=== PATIENT | female | born 1955 | race Caucasian/White ===

== ENCOUNTER 2016-10-27 17:52 | Emergency (ER) | payer MEDICARE, OTHER ==
[2016-10-27] MEDS ORDERED: Acetaminophen 500 MG TAB ONE (18:02)
[2016-10-27 19:13] LABS: #Basophils 0.2 thou/uL (0.0-0.2); #Eosinphils 0.3 thou/uL (0.0-0.7); #Lymphocytes 3.2 thou/uL (1.20-3.40); #Monocytes 1.2 thou/uL (0.11-0.59); #Neutrophils 7.6 thou/uL (1.40-6.50); %Basophils 1.2 % (0.0-1.0); %Eosinophils 2.1 % (0.0-10.0); %Monocytes 9.6 % (0.0-10.0); Hematocrit 47.8 % (36.0-47.0); Mean Platelet Volume 7.8 fL (7.4-10.4); Red Blood Cell (RBC) Count 5.35 mill/uL (4.20-5.40); White Blood Cell (WBC) Count 12.4 thou/uL (4.8-10.8)
--- NOTE | 2016-10-27 19:19 | RAD ---
CHEST TWO VIEWS 10/27/16 There are no prior films available for comparison. The heart is normal in size for age. There are no effusions or congestive changes. While there were no lobar consolidations, there is relative increase in density over the right lower chest that seems to more than just the overlying soft tissues. I cannot exclude an early infiltrate here, though it is difficult to substantiate on the lateral view. The upper lobes are clear. The bony structures godfrey wed no acute change. There may have been old trauma to the distal left clavicle. The trachea is midl ine. IMPRESSION: Equivocal mild increase in markings in the right lower chest. Pneumonia not ruled out. POS: HOME
[2016-10-27 19:24] LABS: ALT (SGPT) 26 U/L (0-55); AST (SGOT) 18 U/L (5-34); Alkaline Phosphatase 92 U/L (40-150); Anion Gap 16 mmol/L (10-20); BUN (Urea Nitrogen) 14 mg/dL (9.8-20.1); Bilirubin, Total 0.3 mg/dL (0.2-1.2); Calc. Creatinine Clearance 0 mL/min (70-130); Calcium 9.8 mg/dL (7.8-10.44); Carbon Dioxide 25 mmol/L (23-31); Chloride 105 mmol/L (98-107); Estimated GFR-MDRD 75; Globulin 3.3 g/dL (2.4-3.5); Protein, Total 7.9 g/dL (5.8-8.1)
[2016-10-27] MEDS ORDERED: methylPREDNISolone Sod Succ/PF 125 MG/2 ML VIAL ONE (19:48)
[2016-10-27 20:34] LABS: Bilirubin Negative (Negative); Blood, Urine Trace (Negative); Glucose, Urine (Dipstick) Negative (Negative); Ketone, Urine Negative (Negative); Nitrite Negative (Negative); Protein, Urine (Dipstick) 30 mg/dL (Neg-Trace); Urobilinogen 0.2 mg/dL (0.2-1.0)
[2016-10-27 20:41] LABS: Bacteria/HPF 1+ HPF (None Seen); RBC/HPF 0-3 HPF (0-3); Squamous Epithelial 0-3 HPF (0-3); WBC/HPF 0-3 HPF (0-3)
[2016-10-27 20:49] LABS: Methadone Not Detected (NotDetected); Methamphetamine Not Detected (NotDetected)
== END 2016-10-27 21:55 | disposition home or self-care (01) ==
LOC: BURERS 17:52
DX: J18.9 Pneumonia, unspecified organism (principal); J45.21 Mild intermittent asthma with (acute) exacerbation; J06.9 Acute upper respiratory infection, unspecified; E11.9 Type 2 diabetes mellitus without complications; F41.9 Anxiety disorder, unspecified; F32.9 Major depressive disorder, single episode, unspecified; Z79.899 Other long term (current) drug therapy; Z79.84 Long term (current) use of oral hypoglycemic drugs
CPT/HCPCS: 36415; 71020; 80053; 80306; 81003; 81015; 85025; 85379; 87040; 94644; 94799; 96365; 96366; 96375; J1956; J2930

== ENCOUNTER 2016-11-29 09:57 | Outpatient (CLI) | payer MEDICARE, OTHER ==
[2016-11-29 11:07] LABS: #Basophils 0.2 thou/uL (0.0-0.2); #Eosinphils 0.4 thou/uL (0.0-0.7); #Lymphocytes 3.1 thou/uL (1.20-3.40); #Monocytes 0.9 thou/uL (0.11-0.59); #Neutrophils 7.5 thou/uL (1.40-6.50); %Basophils 1.3 % (0.0-1.0); %Eosinophils 3.2 % (0.0-10.0); %Monocytes 7.4 % (0.0-10.0); %Neutrophils 62.2 % (42.0-75.0); Hemoglobin 14.1 g/dL (12.0-16.0); Mean Corpuscular HGB CONC 32.1 g/dL (32.0-36.0); Mean Corpuscular Hemoglobin 28.5 pg (27.0-31.0); Mean Corpuscular Volume 88.8 fl (81.0-99.0); Mean Platelet Volume 6.8 fL (7.4-10.4); Platelet Count 275 thou/uL (130-400); RBC Distribution Width 11.8 % (11.5-14.5); Red Blood Cell (RBC) Count 4.96 mill/uL (4.20-5.40); White Blood Cell (WBC) Count 12.1 thou/uL (4.8-10.8)
== END 2016-11-29 09:58 | disposition home or self-care (01) ==
LOC: HPCALD 09:57
PROVIDERS: ATTEND Family Medicine
DX: J18.9 Pneumonia, unspecified organism (principal)
CPT/HCPCS: 36415; 85025

== ENCOUNTER 2016-11-29 10:23 | Outpatient (CLI) | payer MEDICARE ==
--- NOTE | 2016-11-30 07:25 | RAD ---
CHEST TWO VIEWS 11/29/16 Comparison is made with a 10/27/16 study. The heart is upper normal in size but not clearly enlarge. The haziness in the lung bases, particula rly right lung base is approximately the same. A large amount of it is due to overlying soft tissues . On the whole, changes since last month are very minimal. It is difficult to confirm any definite i nfiltrate. There are no effusions. There are no congestive changes. The right hilum has a slightly nodular area, though it appears to be all vessel. Overall, the appear ance of the chest is not much different than before. If she continues with symptoms, then a CT might be contemplated to get a better look and better exam in all portions of the chest. IMPRESSION: No definite acute finding. POS: HOME
== END 2016-11-29 10:24 | disposition home or self-care (01) ==
LOC: BURRAD 10:23
PROVIDERS: ATTEND Family Medicine
DX: J18.9 Pneumonia, unspecified organism (principal)
CPT/HCPCS: 36415; 71020; 85025

== ENCOUNTER 2017-04-08 12:10 | Outpatient (CLI) | payer MEDICARE ==
--- NOTE | 2017-04-08 18:25 | RAD ---
RIGHT HAND THREE VIEWS: Date: 04-08-17 FINDINGS: No fracture was seen. A slightly lucency in the scaphoid appears to be a ridge and not a fracture. T he carpal relations are normal. The distal radius and ulna appear intact. IMPRESSION: No acute finding. POS: HOME
--- NOTE | 2017-04-08 18:58 | RAD ---
RIGHT WRIST THREE VIEWS: Date: 04-08-17 FINDINGS: No fracture was seen. The carpal relations seem normal. There were no acute changes. IMPRESSION: No acute findings. POS: HOME
== END 2017-04-08 12:11 | disposition home or self-care (01) ==
LOC: BURRAD 12:10
PROVIDERS: ATTEND Family Medicine
DX: M25.531 Pain in right wrist (principal); M79.641 Pain in right hand

== ENCOUNTER 2017-04-16 15:07 | Outpatient (CLI) | payer MEDICARE, OTHER ==
--- NOTE | 2017-04-16 20:20 | RAD ---
RIGHT WRIST THREE VIEWS 04/16/17 Comparison is made with the prior study of 04/08/17. FINDINGS: There continues to be no sign of bony abnormality. All carpals appeared intact. No fractures were se en. the carpal relations seem normal. The distal radius and ulna, as well as the metacarpals showed no acute changes. IMPRESSION: No acute findings POS: HOME
== END 2017-04-16 15:08 | disposition home or self-care (01) ==
LOC: BURRAD 15:07
PROVIDERS: ATTEND Family Medicine
DX: S63.501D Unspecified sprain of right wrist, subsequent encounter (principal)

== ENCOUNTER 2017-05-15 17:56 | Emergency (ER) | payer MEDICARE, OTHER ==
[2017-05-15] MEDS ORDERED: Tetracaine HCl 0.5% Ophth Soln 2 ML Bottle ONE (17:59)
[2017-05-15] MEDS ORDERED: Fluorescein Opthalmic Strip ONE (17:59)
[2017-05-15] MEDS ORDERED: Cyclopentolate 1% Opth Drop 2 ML BOT ONE (17:59)
[2017-05-15] MEDS ORDERED: hydrOXYzine 25 MG TAB ONE (19:26)
== END 2017-05-15 19:51 | disposition home or self-care (01) ==
LOC: BURERS 17:56
DX: H10.9 Unspecified conjunctivitis (principal); E11.9 Type 2 diabetes mellitus without complications; J45.909 Unspecified asthma, uncomplicated; F41.9 Anxiety disorder, unspecified; F32.9 Major depressive disorder, single episode, unspecified; Z79.52 Long term (current) use of systemic steroids; Z79.84 Long term (current) use of oral hypoglycemic drugs; Z79.899 Other long term (current) drug therapy
CPT/HCPCS: 99283

== ENCOUNTER 2017-10-02 09:36 | Outpatient (CLI) | payer MEDICARE ==
--- NOTE | 2017-10-02 21:11 | ULT ---
THYROID ULTRASOUND 10/02/17 Comparison is made with the prior ultrasound dated 04/18/15. Today's study shows the right lobe to measure 4.1 x 1.6 x 1.2 cm. Internally, no mass or cyst was see n. The left lobe measures 4.2 x 1.7 x 1.6 cm. The small hypoechoic nodule is seen in the inferior part o f the left lobe measuring about 5 mm in size. No new nodules were seen. IMPRESSION: 1. Previously, a solid nodule was seen in the right lobe. None could be defined today. 2. There was a small hypoechoic nodule in the left lobe previously. This is present today but it is smaller than before. Overall, there certainly has been no sign of progression of disease. POS: HOME
== END 2017-10-02 09:37 | disposition home or self-care (01) ==
LOC: BURULT 09:36
PROVIDERS: ATTEND Family Medicine
DX: E04.1 Nontoxic single thyroid nodule (principal)
CPT/HCPCS: 76536

== ENCOUNTER 2017-10-23 08:52 | Outpatient (CLI) | payer MEDICARE ==
--- NOTE | 2017-10-23 20:17 | CT ---
CT ABDOMEN AND PELVIS WITHOUT CONTRAST 10/23/[address] of the abdomen and pelvis was done using no oral or IV contrast. Comparison is made with a prior scan dated 07/04/15. The liver is perhaps a little generous in size but no different than it was two years ago. No hepatic mass was seen. The spleen, pancreas, gallbladder and abdominal aorta showed no acute findings. The a drenal glands were unremarkable. regarding the kidneys, I see no mass, obstructing calculi, or hydron ephrosis. There is no dilation of either ureter. The bowel is nondistended. There is no bowel wall thickening seen. Some diverticula are noted, but th ere were no convincing findings of diverticulitis. No free air or free fluid was detected. CT of the pelvis showed no pelvic masses, fluid collections, or inflammatory changes. IMPRESSION: No acute abdominal findings to explain the patient's left lower quadrant pain. There were no current findings to allow the diagnosis of diverticulitis or renal/ureteral calculi. POS: HOME
== END 2017-10-23 08:53 | disposition home or self-care (01) ==
LOC: BURCT 08:52
PROVIDERS: ATTEND Family Medicine
DX: R10.32 Left lower quadrant pain (principal)
CPT/HCPCS: 74176

== ENCOUNTER 2020-04-21 20:55 | Emergency (ER) | payer MEDICARE, OTHER ==
[2020-04-21] MEDS ORDERED: predniSONE 20 MG TAB ONE (22:36)
--- NOTE | 2020-04-21 22:38 | RAD ---
PA AND LATERAL CHEST: Date: 04/21/2020 HISTORY: Shortness of breath and cough. FINDINGS: Heart size appears slightly enlarged. Increased density over the right chest appears to be related to a right breast prosthesis. No infiltrate seen on the lateral film. IMPRESSION: Cardiomegaly. POS: [facility]
[2020-04-24 12:15] LABS: SARS-CoV-2 MS2 Positive; SARS-CoV-2 N Gene Negative; SARS-CoV-2 S Gene Negative; SARS-CoV-2 by NAA Not Detected (NotDetected); SARS-CoV-2 orf1ab Negative
== END 2020-04-21 22:44 | disposition home or self-care (01) ==
LOC: BURERS 20:55
DX: J45.901 Unspecified asthma with (acute) exacerbation (principal); J06.9 Acute upper respiratory infection, unspecified; Z20.828 Contact with and (suspected) exposure to other viral communicable diseases; E11.9 Type 2 diabetes mellitus without complications; F41.9 Anxiety disorder, unspecified; F32.9 Major depressive disorder, single episode, unspecified; Z79.899 Other long term (current) drug therapy; Z85.3 Personal history of malignant neoplasm of breast; Z85.828 Personal history of other malignant neoplasm of skin; Z79.51 Long term (current) use of inhaled steroids; Z79.84 Long term (current) use of oral hypoglycemic drugs
CPT/HCPCS: 71046; 87635; J7512; U0003

== ENCOUNTER 2021-08-29 14:48 | Emergency (ER) | payer MEDICARE, OTHER ==
[2021-08-29] MEDS ORDERED: predniSONE 20 MG TAB ONE (16:16)
[2021-08-29] MEDS ORDERED: Doxycycline 100 MG CAP ONE (16:16)
[2021-08-30 10:48] LABS: SARS-CoV-2 PCR by NAA Not Detected (NotDetected)
== END 2021-08-29 21:41 | disposition home or self-care (01) ==
LOC: BURERS 14:48
DX: J22 Unspecified acute lower respiratory infection (principal); B34.9 Viral infection, unspecified; Z20.822 Contact with and (suspected) exposure to COVID-19; E11.9 Type 2 diabetes mellitus without complications; J45.909 Unspecified asthma, uncomplicated
CPT/HCPCS: 71046; 87804 ×2; 99283; U0003; U0005; J7512

== ENCOUNTER 2022-05-05 23:03 | Emergency (ER) | payer MEDICARE, OTHER ==
[2022-05-05] MEDS ORDERED: predniSONE 20 MG TAB ONE (23:29)
[2022-05-05] MEDS ORDERED: HYDROcodone/Acetaminophen 5/325 mg Tablet ONE (23:29)
[2022-05-05] MEDS ORDERED: Cyclobenzaprine 10 MG TAB ONE (23:29)
== END 2022-05-06 00:32 | disposition home or self-care (01) ==
LOC: BURERS 23:03
DX: M77.8 Other enthesopathies, not elsewhere classified (principal); E11.9 Type 2 diabetes mellitus without complications
CPT/HCPCS: J7512